=== PATIENT | female | born 2000 | race Caucasian/White ===

== ENCOUNTER 2022-07-04 16:33 | Outpatient (CLI) | payer OTHER, SELFPAY ==
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
== END 2022-07-04 16:34 | disposition home or self-care (01) ==
LOC: RAD 16:46
PROVIDERS: PCP Nurse Practitioner Primary Care; Visit Provider Nurse Practitioner Primary Care
DX: M54.2 Cervicalgia (principal)
CPT/HCPCS: 72052

== ENCOUNTER 2023-09-11 17:25 | Oncology outpatient (recurring) (ONCR) | payer OTHER, MEDICAID, SELFPAY | END 2023-09-11 23:59 | disposition home or self-care (01) | LOC: ONCMED 17:25 | PROVIDERS: PCP Nurse Practitioner Primary Care; Visit Provider Family Medicine | DX: Z67.11 Type A blood, Rh negative (principal) | CPT/HCPCS: 36415; 86850; 86900 ==

== ENCOUNTER 2023-09-12 16:24 | Oncology outpatient (recurring) (ONCR) | payer OTHER, SELFPAY ==
[2023-09-12 17:13] VITALS: BP 114/74; PULSE 81; RESP 18; TEMP 36.6; O2SAT 100
[2023-09-12 17:15] VITALS: BP 114/74; PULSE 81; RESP 18; TEMP 36.6; O2SAT 100
== END 2023-10-10 23:59 | disposition home or self-care (01) ==
LOC: ONCMED 16:27
PROVIDERS: PCP Nurse Practitioner Primary Care; Visit Provider Family Medicine
DX: O26.899 Other specified pregnancy related conditions, unspecified trimester (principal); Z67.91 Unspecified blood type, Rh negative; Z23 Encounter for immunization
CPT/HCPCS: 86850; 86900; 90384

== ENCOUNTER 2023-09-16 17:24 | Emergency (ER) | payer OTHER, MEDICAID, SELFPAY ==
[2023-09-16 18:03] VITALS: BP 112/78; PULSE 91; RESP 16; TEMP 36.6; O2SAT 100; BMI 22.8
--- NOTE | 2023-09-16 18:30 | ED_ITS ---
HPI - Weakness 2 General: Chief complaint: Weakness Stated complaint: BP low Time Seen by Provider: 09/16/23 18:11 Source: patient Mode of arrival: ambulatory Limitations: no limitations History of Present Illness: 22-year-old female is currently 30 weeks states that she been having some low blood pressures in the 80s and 90s today states an episode earlier today where she had felt shaky weak and lightheaded that lasted roughly an hour. She had some nausea denies any vomiting diarrhea since some slight abdominal cramps denies any vaginal bleeding denies any chest pain or shortness of breath currently Associated symptoms: Reports nausea; Denies chest pain, chills, dysuria, fever(s), headache(s) or vomiting Review of Systems 2 Const: Denies: fever(s) or chills ENMT: Denies: throat pain or dental pain Card: Reports: pre-syncope; Denies: chest pain Resp: Denies: dyspnea GI: Reports: nausea; Denies: abdominal pain, vomiting or diarrhea : Denies: dysuria Musc: Denies: neck pain or back pain Skin/Breast: Denies: rash Neuro: Denies: headache(s) Physical Exam 2 Const: COMMON NORMALS: no acute distress, patient oriented x3 and healthy appearing HENMT: COMMON NORMALS: normocephalic and atraumatic HEAD & SCALP: n ormocephalic and atraumatic Neck/C-Spine: COMMON NORMALS: full ROM and supple Chest: COMMONS NORMALS: normal inspection of the chest and normal palpation of entire chest wall Resp: COMMON NORMALS: normal respiratory effort, No retractions, No use of accessory muscles and clear to auscultation bilaterally AUSCULTATION: clear to auscultation bilaterally Cardio: COMMON NORMALS: regular rate, regular rhythm and No murmurs present (Cardio) RATE: regular rate RHYTHM: regular rhythm GI: COMMON NORMALS: Soft to palpation, non-tender and no masses PALPATION: Yes Soft to palpation OTHER: gravid uerus Extremity: COMMON NORMALS: normal to inspection and full ROM Neuro: COMMON NORMALS: patient oriented x3, moves all extremities and no focal motor deficits Psych: COMMON NORMALS: mental status grossly normal, Normal thought process present and cooperative THOUGHT PROCESS: Normal thought process present Skin: COMMON NORMALS: no rashes or lesions noted and no wounds GENERAL SKIN EXAM: no rashes or lesions noted Course 2 Vital Signs: Vital signs: Vital Signs Temperature 97.9 F 09/16/23 18:03 Pulse Rate 91 09/16/23 18:03 Respiratory Rate 16 09/16/23 18:03 Blood Pressure 111/56 09/16/23 18:50 Pulse Oximetry 100 09/16/23 18:03 Oxygen Delivery Me thod Room Air 09/16/23 18:03 MDM - Weakness Medical Decision Making Patient presents here with complaints of hypotension at home she is currently 30 weeks explained to her that blood pressure tends to run a little lower than normal her blood work here is normal no signs of acute anemia she has had some abdominal cramping we will discharge her over to labor and delivery as she is 30 weeks Medical Records I reviewed the patient's medical records. Lab Data I reviewed the patient's lab results. 09/16/23 18:32 09/16/23 18:32 Laboratory Results WBC 10.69 10^3/uL (3.29-11.43) 09/16/23 18:32 RBC 4.20 10^6/uL (3.85-5.65) 09/16/23 18:32 Hgb 10.00 g/dL (11.27-16.99) L 09/16/23 18:32 Hct 33.6 % (36-47) L 09/16/23 18:32 MCV 80.0 fl (85-98) L 09/16/23 18:32 MCH 23.8 pg (27-33) L 09/16/23 18:32 MCHC 29.8 g/dL (30-55) L 09/16/23 18:32 RDW 15.6 % (12.1-15.1) H 09/16/23 18:32 Plt Count 241 10^3/cmm (157-399) 09/16/23 18:32 MPV 10.5 fL (7.4-10.4) H 09/16/23 18:32 Neut % (Auto) 68.7 % 09/16/23 18:32 Lymph % (Auto) 23.1 % 09/16/23 18:32 [place] % (Auto) 6.5 % 09/16/23 18:32 Eos % (Auto) 0.5 % 09/16/23 18:32 Baso % (Auto) 0.3 % 09/16/23 18:32 Neut # (Auto) 7.35 10^3/uL (1.8-7.7) 09/16/23 18:32 Lymph # (Auto) 2.5 10^3/uL (0.8-4.8) 09/16/23 18:32 [place] # (Auto) 0.7 10^3/uL (0.2-0.9) 09/16/23 18:32 Eos # (Auto) 0.1 10^3/uL (0.0-0.8) 09/16/23 18:32 Baso # (Auto) 0.0 10^3/uL (0.0-0.1) 09/16/23 18:32 Nucleated RBC % (auto) 0.3 % 09/16/23 18: Nucleated RBCs # 0.0 /100WBC 09/16/23 18:32 Sodium 135 mmol/L (136-145) L 09/16/23 18:32 Potassium 3.8 mmol/L (3.5-5.1) 09/16/23 18:32 Chloride 105 mmol/L (98-107) 09/16/23 18:32 Carbon Dioxide 19 mmol/L (22-29) L 09/16/23 18:32 Anion Gap 14.8 (5-19) 09/16/23 18:32 BUN 8 mg/dL (6-20) 09/16/23 18:32 Creatinine 0.4 mg/dL (0.5-0.9) L 09/16/23 18:32 GFR Calculation 199.6 mL/min (90-130) H 09/16/23 18:32 Glucose 75 mg/dL (65-115) 09/16/23 18:32 Calculated Osmolality 277 mOsm/kg (285-295) L 09/16/23 18:32 Calcium 8.8 mg/dL (8.5-10.5) 09/16/23 18:32 Total Bilirubin 0.9 mg/dL (0.15-1.2) 09/16/23 18:32 AST 16 U/L (0-32) 09/16/23 18:32 ALT 11 U/L (0-33) 09/16/23 18:32 Alkaline Phosphatase 81 U/L (35-105) 09/16/23 18:32 Total Protein 6.8 g/dL (6.6-8.7) 09/16/23 18:32 Albumin 3.5 g/dL (3.5-5.2) 09/16/23 18:32 Globulin 3.3 g/dL (1.3-4.6) 09/16/23 18:32 Urine Color Yellow (Yellow) 09/16/23 18:32 Urine Appearance Hazy (CLEAR) A 09/16/23 18:32 Urine pH 6.5 (5-7) 09/16/23 18:32 Ur Specific [place] 1.025 (1.005-1.030) 09/16/23 18:32 Urine Protein Trace (Negative) 09/16/23 18:32 Urine Glucose (UA) Norm (Normal) 09/16/23 18:32 Urine Ketones Negative (Negative) 09/16/23 18:32 Urine Blood 2+ (Negative) H 09/16/23 18:32 Urine Nitrate Negative (Negative) 09/16/23 18:32 Urine Bilirubin Neg (Negative) 09/16/23 18:32 Urine Urobilinogen Norm mg/dL (Negative) 09/16/23 18:32 Ur Leukocyte Esterase 2+ (Negative) H 09/16/23 18:32 Urine RBC 0-4 /hpf (0-2) H 09/16/23 18:32 Urine WBC >100 /hpf (0-5) H 09/16/23 18:32 Ur Squamous Epith Cells 25-40 /hpf (0-5) H 09/16/23 18:32 Amorphous Sediment Not Reportable 09/16/23 18:32 Urine Bacteria 1+ /hpf (NONE) H 09/16/23 18:32 All radiology interpretation(s) finalized by discharge Discharge Plan Discharge Patient Disposition: Home Clinical Impression: Hypotension Condition: Stable Discharge Orders: Discharge ED (Routine); Ordered 09/16/23 Ordered By: Kiersten Cobian Referrals: Mallory Lee MD [Primary Care Provider] - Discharge Diet: Advance as tolerated Discharge Activity: Resume usual activity Patient Instructions: (ED), Hypotension (ED) Coding Level of Care Code ED Rn Geriatric for Pop López
[2023-09-16] MEDS: sodium chloride 0.9% 1,000 ML 999 ML IV (18:47)
[2023-09-16 18:50] VITALS: BP 111/56
[2023-09-16 19:08] LABS: Basophils % 0.3 %; Eosinophils # 0.1 10^3/uL (0.0-0.8); Eosinophils % 0.5 %; Hematocrit 33.6 % (36-47); Lymphocytes # 2.5 10^3/uL (0.8-4.8); Lymphocytes % 23.1 %; Mean Corpuscular HGB Conc 29.8 g/dL (30-55); Mean Corpuscular Hemoglobin 23.8 pg (27-33); Mean Platelet Volume 10.5 fL (7.4-10.4); Monocytes # 0.7 10^3/uL (0.2-0.9); Monocytes % 6.5 %; Neutrophils # 7.35 10^3/uL (1.8-7.7); Neutrophils % 68.7 %; Nucleated Red Blood Cells % 0.3 %; Platelet Count 241 10^3/cmm (157-399); Red Cell Distribution Width 15.6 % (12.1-15.1); White Blood Count 10.69 10^3/uL (3.29-11.43)
[2023-09-16 19:16] LABS: Add Urine Microscopic? YES; Bilirubin Urine Neg (Negative); Blood Urine 2+ (Negative); Glucose Urine UA Norm (Normal); Ketones Urine Negative (Negative); Leukocyte Esterase Urine 2+ (Negative); Nitrate Urine Negative (Negative); Protein Urine Trace (Negative); Specific Gravity, Urine 1.025 (1.005-1.030); Urine Appearance Hazy (CLEAR); Urine Color Yellow (Yellow); Urobilinogen Urine Norm (Negative); pH Urine 6.5 (5-7)
[2023-09-16 19:17] LABS: Add Urine Culture? No; Bacteria Urine 1+ /hpf; RBC Urine 0-4 /hpf (0-2); Squamous Epithelial Cell Urine 25-40 /hpf (0-5); WBC Urine >100 /hpf (0-5)
[2023-09-16 19:20] LABS: Alanine Aminotransferase 11 U/L (0-33); Albumin Level 3.5 g/dL (3.5-5.2); Alkaline Phosphatase 81 U/L (35-105); Anion Gap 14.8 (5-19); Aspartate Amino Transferase 16 U/L (0-32); Blood Urea Nitrogen 8 mg/dL (6-20); Calcium 8.8 mg/dL (8.5-10.5); Carbon Dioxide 19 mmol/L (22-29); Chloride 105 mmol/L (98-107); Globulin 3.3 g/dL (1.3-4.6); Glomerular Filtration Rate 199.6 mL/min (90-130); Glucose 75 mg/dL (65-115); Osmolality Calculated 277 mOsm/kg (285-295); Potassium 3.8 mmol/L (3.5-5.1); Sodium 135 mmol/L (136-145); Total Bilirubin 0.9 mg/dL (0.15-1.2); Total Protein 6.8 g/dL (6.6-8.7)
[2023-09-16 20:15] VITALS: BP 115/54; PULSE 73; O2SAT 98
== END 2023-09-16 20:15 | disposition home or self-care (01) ==
PROVIDERS: Emergency Provider Emergency Medicine; PCP Family Medicine
DX: I95.9 Hypotension, unspecified (principal)
CPT/HCPCS: 80053; 81001; 85025; 99284; J7030

== ENCOUNTER 2023-09-16 20:24 | Outpatient (CLI) | payer OTHER, MEDICAID, SELFPAY ==
[2023-09-16 20:32] VITALS: BMI 23.7
[2023-09-16 20:45] VITALS: BP 125/72; PULSE 79
== END 2023-09-16 21:41 | disposition home or self-care (01) ==
LOC: OPOB 20:26 → OBGYN 20:29
PROVIDERS: PCP Family Medicine; Visit Provider Family Medicine
DX: O21.9 Vomiting of pregnancy, unspecified (principal); Z3A.00 Weeks of gestation of pregnancy not specified
CPT/HCPCS: 59025; 99211

== ENCOUNTER 2023-09-26 10:57 | Outpatient (CLI) | payer OTHER, MEDICAID, SELFPAY ==
[2023-09-26 11:24] VITALS: BMI 23.8
== END 2023-09-26 11:39 | disposition home or self-care (01) ==
LOC: OPOB 10:57 → OBGYN 11:02
PROVIDERS: PCP Family Medicine; Visit Provider Family Medicine
DX: O26.899 Other specified pregnancy related conditions, unspecified trimester (principal); Z3A.00 Weeks of gestation of pregnancy not specified
CPT/HCPCS: 59025

== ENCOUNTER 2023-11-16 22:55 | Inpatient (IN) | payer OTHER, MEDICAID, SELFPAY ==
[2023-11-16] VITALS (8 sets, daily range): BP systolic 132–137; BP diastolic 66–88; PULSE 92–127; O2SAT 85–100; BMI 25.8
[2023-11-16] MEDS: lactated ringers 1,000 ML 999 ML IV (23:09)
[2023-11-16] MEDS: clindamycin 900 MG/50 ML PREMIX 100 MG IV (23:12)
[2023-11-16 23:14] LABS: Basophils % 0.2 %; Eosinophils % 0.3 %; Lymphocytes # 2.5 10^3/uL (0.8-4.8); Lymphocytes % 20.5 %; Mean Corpuscular HGB Conc 28.4 g/dL (30-55); Mean Corpuscular Hemoglobin 20.4 pg (27-33); Mean Corpuscular Volume 71.9 fl (85-98); Mean Platelet Volume 11.2 fL (7.4-10.4); Monocytes # 0.7 10^3/uL (0.2-0.9); Monocytes % 5.5 %; Neutrophils # 8.95 10^3/uL (1.8-7.7); Neutrophils % 72.8 %; Nucleated Red Blood Cells # 0.1 /100WBC; Nucleated Red Blood Cells % 0.5 %; Platelet Count 301 10^3/cmm (157-399); Red Blood Count 4.45 10^6/uL (3.85-5.65); Red Cell Distribution Width 19.2 % (12.1-15.1)
[2023-11-17] VITALS (26 sets, daily range): BP systolic 109–142; BP diastolic 64–78; PULSE 66–106; RESP 16–18; TEMP 36.6–36.8; O2SAT 97–100
[2023-11-17] MEDS: oxytocin 30 UNIT/500 ML BAG 600 UNIT IV (00:02)
[2023-11-17] MEDS: lidocaine 2% INJ 20 mL INJECTION (00:05)
--- NOTE | 2023-11-17 00:53 | PM.OPHPUD ---
Labor & Delivery H&P Update Date of Procedure: November 17, 2023 Date H&P Performed: 11/16/23 Admission Diagnosis: IUP at 39 weeks 2 days gestation in active labor Group B strep carrier Planned procedure: Expectant management of labor and delivery
--- NOTE | 2023-11-17 00:58 | P.PCNOB_ITS ---
Delivery Note: Date of delivery: November 17, 2023 Procedure: Normal spontaneous vaginal delivery Delivering Physician: Mallory Lee MD Estimated blood loss (mL): 150 Pre-Delivery Course: The patient had routine care at [facility] she was blood type A-, antibody negative, hepatitis B nonreactive, hepatitis C nonreactive, HIV nonreactive, rubella immune, GC chlamydia negative, RPR nonreactive, UDS negative, Q aime low risk, she passed her glucose tolerance test, she was GBS positive and ampicillin allergic but culture revealed she was clindamycin sensitive. Delivery: This is a 22-year-old G1, P0 at 39 weeks 2 days gestation who presented to labor and delivery in active labor. She was 5 cm dilated and 80% effaced at presentation. At first she did not want an epidural but changed her mind. However she was making rapid cervical change. She was known to be GBS positive. She did receive 1 dose of clindamycin less than an hour prior to delivery. She had spontaneous rupture of membranes with clear fluid. Anesthesia arrived to perform the epidural but she was already complete and +1 station. She was unable to receive the epidural. She had a normal spontaneous vaginal delivery of a viable male infant weight 2670 g, 5 pounds 14 ounces, Apgars 8 and 9 over an intact perineum. The was suctioned at delivery and placed on the mother's chest. The cord was clamped and cut. The placenta was delivered grossly intact and normal to inspection. There was a second-degree perineal laceration that was sutured using 3-0 chromic. Mother and were doing well after delivery. Coding Level of Care Code Acute Code for Chg Fwd
[2023-11-17] MEDS: docusate sodium 100 mg Capsule PO ×2 (08:19→22:08)
[2023-11-17] MEDS: PRENATAL VIT NO.130/IRON/FOLIC 1 EACH TABLET PO (08:19)
[2023-11-17] MEDS: ibuprofen 800 mg tablet PO ×3 (08:19→22:08)
--- NOTE | 2023-11-17 12:28 | P.PN_ITS ---
Subjective 2 Subjective: Patient states she has decreased vaginal bleeding, she is ambulating and tolerating a regular diet. Vitals/I&O/Wt Last Vital Signs Temp 98.2 F 11/17/23 06:00 Pulse 76 11/17/23 06:00 Resp 16 11/17/23 06:00 BP 116/72 11/17/23 06:00 Pulse Ox 98 11/17/23 06:00 O2 Del Method Room Air 11/17/23 06:00 11/16/23 11/17/23 11/17/23 22:59 06:59 14:59 Intake Total 300 / 300 Output Total 900 / 900 Balance -600 / -600 Weight last 48 hrs Weight 72.575 kg Physical Exam 2 Narrative: Sitting up in bed, heart regular rate and rhythm, lungs clear to auscultation bilaterally, abdomen is soft and nontender, fundus is firm, extremities have 1+ edema but no calf tenderness Data 11/16/23 23:04 A&P Assessment and plan (1) (normal spontaneous vaginal delivery): Routine care Attestations 2 Medical Necessity Statement*: Routine care Coding Level of Care Code Acute Code for Chg Fwd Diagnoses (normal spontaneous vaginal delivery) O80
[2023-11-17 13:26] LABS: Hematocrit 27.2 % (36-47); Mean Corpuscular HGB Conc 28.3 g/dL (30-55); Mean Corpuscular Hemoglobin 20.6 pg (27-33); Mean Corpuscular Volume 72.7 fl (85-98); Mean Platelet Volume 10.5 fL (7.4-10.4); Platelet Count 227 10^3/cmm (157-399); Red Blood Count 3.74 10^6/uL (3.85-5.65); Red Cell Distribution Width 19.1 % (12.1-15.1); White Blood Count 15.85 10^3/uL (3.29-11.43)
[2023-11-18] MEDS: acetaminophen 325 mg Tablet 650 MG PO (02:23)
[2023-11-18 05:07] VITALS: BP 107/70; PULSE 64; RESP 17; TEMP 36.6; O2SAT 100
[2023-11-18] MEDS: docusate sodium 100 mg Capsule PO ×2 (09:40→18:43)
[2023-11-18] MEDS: ibuprofen 800 mg tablet PO ×3 (09:40→20:51)
[2023-11-18] MEDS: PRENATAL VIT NO.130/IRON/FOLIC 1 EACH TABLET PO (09:40)
[2023-11-18 09:45] VITALS: BP 126/82; PULSE 82; RESP 18; TEMP 36.7; O2SAT 98
--- NOTE | 2023-11-18 15:57 | P.PN_ITS ---
Subjective 2 Subjective: She is ambulating, tolerating a regular diet, has good pain control and has decreased vaginal bleeding Vitals/I&O/Wt Last Vital Signs Temp 98.1 F 11/18/23 09:45 Pulse 82 11/18/23 09:45 Resp 18 11/18/23 09:45 BP 126/82 11/18/23 09:45 Pulse Ox 98 11/18/23 09:45 O2 Del Method Room Air 11/18/23 09:45 Weight last 48 hrs Weight 72.575 kg Physical Exam 2 Narrative: Alert and oriented, sitting up in bed with infant, heart regular rate and rhythm, lungs clear to auscultation bilaterally, abdomen is soft and nontender, extremities have no edema and no calf tenderness Data 11/17/23 13:18 A&P Assessment and plan (1) (normal spontaneous vaginal delivery): Routine care. Mother was GBS positive and only received 1 dose of clindamycin prior to delivery so the infant will be staying no less than 48 hours. For this reason we will keep mother and another night as well. Attestations 2 Medical Necessity Statement*: Routine care Coding Level of Care Code Acute Code for Chg Fwd Diagnoses (normal spontaneous vaginal delivery) O80
[2023-11-18 16:38] VITALS: BP 110/64; PULSE 79; RESP 16; TEMP 36.8; O2SAT 99
[2023-11-18 21:00] VITALS: BP 109/67; PULSE 79; RESP 16; TEMP 36.7; O2SAT 99
[2023-11-19] MEDS: acetaminophen 325 mg Tablet 650 MG PO (02:50)
[2023-11-19 04:59] VITALS: BP 123/72; PULSE 73; RESP 16; TEMP 36.8; O2SAT 98
[2023-11-19] MEDS: PRENATAL VIT NO.130/IRON/FOLIC 1 EACH TABLET PO (09:54)
[2023-11-19] MEDS: docusate sodium 100 mg Capsule PO (09:54)
[2023-11-19] MEDS: ibuprofen 800 mg tablet PO (09:54)
[2023-11-19 10:00] VITALS: BP 127/78; PULSE 91; RESP 18; TEMP 36.8; O2SAT 99
--- NOTE | 2023-11-19 11:47 | P.DS_ITS ---
Discharge Providers Date of Admission: 11/16/23 22:55 Date of Discharge: November 19, 2023 Attending Provider at Admission: Mallory Lee MD Attending Provider at Discharge: Mallory Lee MD Primary Care Provider: Mallory Lee MD Diagnoses at Discharge Discharge Diagnosis (1) (normal spontaneous vaginal delivery): Status: Acute Reason for Visit Reason for Visit: contractions Hospital Course Hospital Course This is a 22-year-old G1 now P1 who presented at term in active labor. She had a normal spontaneous vaginal delivery of a viable male . She did well . She was ambulating, tolerating a regular diet, had decreased vaginal bleeding and was comfortable with discharge home Physical Exam Narrative: Alert and oriented sitting up in bed, heart regular rate and rhythm, lungs clear to auscultation bilaterally, abdomen is soft and nontender, extremities have no edema and no calf tenderness Discharge Data Studies Completed and Pending Laboratory Results WBC 15.85 10^3/uL (3.29-11.43) H 11/17/23 13:18 RBC 3.74 10^6/uL (3.85-5.65) L 11/17/23 13:18 Hgb 7.70 g/dL (11.27-16.99) L 11/17/23 13:18 Hct 27.2 % (36-47) L 11/17/23 13:18 MCV 72.7 fl (85-98) L 11/17/23 13:18 MCH 20.6 pg (27-33) L 11/17/23 13:18 MCHC 28.3 g/dL (30-55) L 11/17/23 13:18 RDW 19.1 % (12.1-15.1) H 11/17/23 13:18 Plt Count 227 10^3/cmm (157-399) 11/17/23 13:18 MPV 10.5 fL (7.4-10.4) H 11/17/23 13:18 Neut % (Auto) 72.8 % 11/16/23 23:04 Lymph % (Auto) 20.5 % 11/16/23 23:04 [place] % (Auto) 5.5 % 11/16/23 23:04 Eos % (Auto) 0.3 % 11/16/23 23:04 Baso % (Auto) 0.2 % 11/16/23 23:04 Neut # (Auto) 8.95 10^3/uL (1.8-7.7) H 11/16/23 23:04 Lymph # (Auto) 2.5 10^3/uL (0.8-4.8) 11/16/23 23:04 [place] # (Auto) 0.7 10^3/uL (0.2-0.9) 11/16/23 23:04 Eos # (Auto) 0.0 10^3/uL (0.0-0.8) 11/16/23 23:04 Baso # (Auto) 0.0 10^3/uL (0.0-0.1) 11/16/23 23:04 Nucleated RBC % (auto) 0.5 % 11/16/23 23:04 Nucleated RBCs # 0.1 /100WBC 11/16/23 23:04 Blood Type A Negative 11/16/23 23:04 Rho(D) Type Rh negative 11/16/23 23:04 Antibody Screen Positive 11/16/23 23:04 Antibody Identification Anti-D 11/16/23 23:04 Vitals Last Vital Signs Temp 98.2 F 11/19/23 04:59 Pulse 73 11/19/23 04:59 Resp 16 11/19/23 04:59 BP 123/72 11/19/23 04:59 Pulse Ox 98 11/19/23 04:59 O2 Del Method Room Air 11/19/23 04:59 Discharge Plan Discharge Patient Disposition: Home Condition: Stable Prescriptions: New ferrous sulfate 324 mg (65 mg iron) tablet,delayed release (DR/EC) 324 mg PO DAILY Qty: 30 0RF Rx Instructions: over the counter Continued 1 tab PO DAILY Discharge Orders: Discharge Order (Routine); Ordered 11/19/23 Ordered By: Mallory Lee Referrals: Mallory Lee MD [Primary Care Provider] - 1 month Discharge Diet: Usual diet Discharge Activity: Limit activity as instructed Patient Instructions: Bleeding (DC), Preeclampsia and Eclampsia After Delivery (GEN), Hemorrhage (DC), OB Discharge Report, OB Food/Drug Interaction Guide, OB Care at Home, Opioid Safety, OB Home Care, Abnormal Bleeding, Depression Activity Restrictions/Additional Instructions: Nothing per vagina for 6 weeks Discharge Attestations Time Spent in Discharge Care*: other Quality Metrics Clinical Quality Measures [ No reported AMI, CVA or VTE this stay] Coding Level of Care Code Acute Code for Chg Fwd Diagnoses (normal spontaneous vaginal delivery) O80
[2023-11-19 13:30] VITALS: BP 109/67; PULSE 89; RESP 16; TEMP 36.7; O2SAT 99
== END 2023-11-19 13:38 | disposition home or self-care (01) | DRG 807 ==
LOC: OPOB 11-17 08:26 → OBGYN 11-17 08:27
PROVIDERS: Admitting Provider Family Medicine; PCP Family Medicine; Visit Provider Family Medicine
DX: O99.824 Streptococcus B carrier state complicating childbirth (principal); Z37.0 Single live birth; O70.1 Second degree perineal laceration during delivery; Z3A.39 39 weeks gestation of pregnancy; O26.893 Other specified pregnancy related conditions, third trimester; Z67.11 Type A blood, Rh negative
CPT/HCPCS: 36415; 59025; 59409; 80503; 85025; 85027; 86850; 86870; 86900; 96374; 96376; 99211; J2590; J2795; J3010; J3490; J7120